=== PATIENT | male | born 1945 | race Caucasian/White ===

== ENCOUNTER 2017-03-04 15:52 | Emergency (ER) | payer SELFPAY | END 2017-03-04 17:05 | disposition home or self-care (01) | LOC: CED 15:52 → CFTX 15:52 | DX: S71.111A Laceration without foreign body, right thigh, initial encounter (principal); Z23 Encounter for immunization; X58.XXXA Exposure to other specified factors, initial encounter; Y92.009 Unspecified place in unspecified non-institutional (private) residence as the place of occurrence of the external cause | CPT/HCPCS: 12032; 90471; 90715; 99283 ==